=== PATIENT | male | born 1980 | race Caucasian/White ===

== ENCOUNTER 2018-01-13 09:56 | Outpatient (CLI) | payer OTHER ==
[~2018-01-13] VITALS: Ht 188 cm; Wt 109.1 kg
--- NOTE | ~2018-01-13 | HEMODYNAMI ---
PATIENT:RANDALL CAMPOS MEDICAL RECORD: [id number] : 82 LOCATION:[facility] ADMISSION DATE: 01/13/18 Generatedon:01/13/201812:41 Patient name: RANDALL CAMPOS Patient #: [id number] SSN: : 1980 Date of study: 01/13/2018 Page: Of Hemodynamic Procedure Report Patient Data Patient Demographics Procedure consent was obtained First Name: RANDALL Gender: Male Last Name: ANDRES : 1980 Patient #: [id number] Age: 37 year(s) Race: Unknown Additional ID: [id number] Contact details [address]: [address] [place] [address] State: [place] City: [place] Zip code: [address] Past Medical History Allergies: No known allergies Admission Admission Data Admission Date: 01/13/2018 Admission Time: 9:56 Admit Source: Other Lab Results Lab Result Date: 01/13/2018 Lab Result Time: 10:27 Biochemistry Name Units Result Min Max BUN mg/dl 13 --(--*-)-- 7 18 Creatinine mg/dl 0.8 --(-*--)-- 0.6 1.3 CBC Name Units Result Min Max Hematocrit % 42.2 --(*---)-- 42 54 Hemoglobin g/dl 15.9 --(--*-)-- 13.5 17.5 Procedure Procedure Types Cath Procedure Diagnostic Procedure KOLBY Procedure Description Procedure Date Procedure Date: 01/13/2018 Procedure Start Time: 12:27 Procedure End Time: 12:37 Procedure Staff Name Function Dao Watt MD Performing Physician Irineo Alonzo RT Monitor Vida Mcbride RT Crown Ceramist Emily Ohara RN Nurse Ronald Renteria CRNA Additional personnel Helen Garnett Chimney Mechanic Procedure Data Cath Procedure Fluoroscopy Diagnostic fluoroscopy Total fluoroscopy Time: 0 time: 0 min min Diagnostic fluoroscopy Total fluoroscopy dose: 0 dose: 0 mGy mGy Contrast Material Contrast Material Type Amount (ml) Isovue 300 0 Estimated blood loss: 0 ml Procedure Complications No complications Procedure Medications Medication Administration Route Dosage 0.9% NaCl I.V. 100 ml/hr Oxygen etCO2 Nasal cannula 2 l/min Refer to Anesthesia Notes for Sedation Medications unlisted medication 20 ml Hemodynamics Rest HGB: 15.9 (g/dl) Heart Rate: 98 (bpm) Snapshots Pre Cath Intra NCS Post Cath Vital Signs Time Heart Resp SPO2 etCO2 NIBP (mmHg) Rhythm Pain Sedation Rate (ipm) (%) (mmHg) Status Level (bpm) 12:17:37 95 17 100 28.1 138/86(106) NSR 0 (11) 10(A) , No pain 12:21:57 94 24 100 28.8 143/87(113) NSR 0 (11) 10(A) , No pain 12:27:35 96 15 100 28.1 174/162(165) NSR 0 (11) 9(A) , No pain 12:31:36 94 33 100 33.4 147/86(111) NSR 0 (11) 9(A) , No pain 12:35:01 94 23 100 34.9 133/77(96) NSR 0 (11) 9(A) , No pain 12:40:00 106 14 99 35 144/79(92) NSR 0 (11) 9(A) , No pain Medications Time Medication Route Dose Verified Delivered Reason Notes Effective ness by by 12:12:54 0.9% NaCl I.V. 100 Dao Diaz used for ml/hr Alysa Ohara RN procedure 12:13:00 Oxygen etCO2 2 Dao Diaz used for Nasal l/min Alysa Ohara RN procedure cannula 12:13:24 Refer to Dao Diaz Anesthesia Alysa Ohara RN Notes for Sedation Medications 12:24:30 viscous gargle 20 ml Dao Diaz used for lidocaine Alysa Ohara RN procedure Procedure Log Time Note 11:59:33 Informed consent obtained and on chart 11:59:37 Admit Source: Other 12:04:15 Emily Ohara RN sent for patient. Start room use. 12:04:16 Time tracking: Regular hours (M-F 7:00 - 5:00) 12:04:19 Plan of Care:Hemodynamics will remain stable., Cardiac rhythm will remain stable., Comfort level will be maintained., Respiratory function will remain adequate., Patient/ family verbilizes understanding of procedure., Procedure tolerated without complication., Recovers from procedure without complications.. 12:09:01 Lab Result : Creatinine 0.8 mg/dl 12:: Lab Result : BUN 13 mg/dl 12:: Lab Result : Hemoglobin 15.9 g/dl 12:: Lab Result : Hematocrit 42.2 % 12:09:03 Lab results completed and on chart. 12:09:18 Patient arrived from Pre/Post Procedure Room to CCL 1. Patient remains on bed/stretcher for procedure. 12:09:20 Warm blankets applied, and jayjay hugger turned on for patient comfort. 12:09:20 Correct patient and procedure confirmed by team. 12:09:21 ECG and BP/O2 sat monitors applied to patient. 12:09:32 H&P Date Dictated: 01/06/2018 Within 30 days and on chart., H&P Addendum completed by physician on day of procedure. (MUST COMPLETE FOR ALL OUTPATIENTS). 12:09:34 Family in waiting room. 12:09:36 Patient NPO since Midnight. 12:09:42 Patient allergic to No known allergies 12:09:44 Is the patient allergic to Iodine/contrast media? No. 12:12:43 Vital chart was started 12:12:54 0.9% NaCl 100 ml/hr I.V. was administered by Emily Ohara RN; used for procedure; 12:13:00 Oxygen 2 l/min etCO2 Nasal cannula was administered by Emily Ohara RN; used for procedure; 12:13:24 Refer to Anesthesia Notes for Sedation Medications was administered by Emily Ohara RN; ; 12:13:25 Baseline sample Acquired. 12:13:34 Is patient on blood thinner?No 12:13:35 Patient diabetic? No. 12:13:37 Previous problem with sedation/anesthesia? No ? 12:13:39 Snore? Yes 12:13:40 Sleep apnea? No 12:13:41 Deviated septum? No 12:13:42 Opens mouth fully? Yes 12:13:42 Sticks out tongue? Yes 12:13:44 Airway obstruction? No ? 12:13:46 Dentures? No ? 12:14:02 IV patent on arrival in left forearm with 0.9% NaCl at [facility]. 12:14:10 Alarms reviewed by R. NOanh 12:15:20 Ronald Renteria CRNA present and monitoring patient for TIVA. 12:15:24 Helen Mariola Grassland Conservationist present for KOLBY. 12:15:29 Baseline sample Acquired. 12:15:34 Rhythm: sinus tachycardia 12:15:35 Full Disclosure recording started 12:20:14 Physician arrived 12:20:14 --------ALL STOP TIME OUT------ 12:20:14 Final Timeout: patient, procedure, and site verified with staff and physician. All members of the team are in agreement. 12:20:19 Physical assessment completed. ASA score P 2 - A patient with mild systemic disease as per Dao Watt MD. 12:20:22 Sedation plan: TIVA Medication:Propofol 12:24:30 viscous lidocaine 20 ml gargle was administered by Emily Ohara RN; used for procedure; 12:27:47 Procedure started. 12:27:49 KOLBY started. 12:30:46 KOLBY completed. 12:32:13 Procedure ended.(Physican Out) 12:32:29 Fluoroscopy time 00.00 minutes. 12:32:30 Fluoroscopy dose: 0 mGy 12:32:30 Flurop Dose total: 0 12:32:33 Contrast amount:Isovue 300 0ml. 12:32:34 Sharps counted by scrub and verified by R.N. 12:33:07 Post-procedure physical assessment completed. ASA score P 2 - A patient with mild systemic disease as per Dao Watt MD. 12:33:10 Post procedure rhythm: unchanged. 12:33:12 Estimated blood loss: 0 ml 12:33:12 Post procedure instruction explained to patient.Patient verbalizes understanding. 12:33:13 Patient needs reinforcement of post procedure teaching. 12:33:52 Procedure and supply charges have been captured, reviewed, submitted and are correct. 12:33:54 Procedure Complication : No complications 12:37:38 See physician's report for complete and final results. 12:37:40 Report given to Pre/Post Procedure Room. 12:37:42 Patient transfered to Pre/Post Procedure Room with Stretcher. 12:37:43 Procedure ended. 12:37:43 Full Disclosure recording stopped 12:37:47 End room use (Document Last) Signature Audit [place] Stage Time Signature Unsigned Intra-Procedure 01/13/2018 Irineo Alonzo 12:41:39 PM RT(R) Signatures Monitor : Irineo Alonzo RT Signature : Date : Time : [facility] [address] [place] [address]
--- NOTE | ~2018-01-13 | TEE ---
PATIENT:RANDALL CAMPOS MEDICAL RECORD: [id number] LOCATION:[facility] AGE OF PATIENT: 37 ADMISSION DATE: 01/13/18 SEX: M REFERRING PHYSICIAN: INTERPRETING PHYSICIAN: CLAYTON WATT MD TRANSESOPHAGEAL ECHOCARDIOGRAM Date: 01/13/18 KOLBY CHARGE Y INDICATIONS: MITRAL VALVE ABNORMALITY R/O VEGETATION PREMEDICATIONS: PATIENT'S RESPONSE PROCEDURE DOPPLER MEASUREMENTS: LVIT LA PA RA LVOT RVOT Asc. Ao AV Gradient Peak AV Mean AV Area MV Gradient Peak MV Mean MV Area INTERPRETATION: Doppler: 2-D: COLOR FLOW DOPPLER NORMAL SALINE STUDY: MISCELLANOUS: DIAGNOSIS: PLAN: Supervisor Belt And Link Assembly:1 Dr. Watt Channeling Machine Operator: 1 NADJAALEXIS BEARDOE COMMENTS: DATE OF SERVICE: 01/13/2018 PROCEDURE: Transesophageal echo. INDICATION: Evaluate for endocarditis. PROCEDURE IN DETAIL: After informed consent was obtained and after a detailed description of risks, benefits as well as alternative therapies, the patient proceed with transesophageal echo. IV conscious sedation was per anesthesia. TRANSESOPHAGEAL ECHOCARDIOGRAM REPORT [id number] RANDALL CAMPOS Continuous heart rate, O2 saturation, blood pressure monitoring all undertaken, all of which remained stable. FINDINGS: 1. The left ventricular chamber size is within normal limits. Left ventricular systolic function is normal. Overall ejection fraction estimated 60%. 2. Left atrium, right atrium, and right ventricle chamber sizes are within normal limits. 3. Valvular structures have normal structure and motion. No evidence of endocarditis. The mitral valve concern on transthoracic echo was only a prominent chordae. 4. Doppler interrogation reveals no significant valvular insufficiency or stenosis. 5. No evidence of pericardial effusion or left ventricular thrombus. OVERALL IMPRESSION: No evidence of vegetative endocarditis. TRANSINT:[id number] Voice Confirmation ID: [id number] DOCUMENT ID: [id number] at [id number] CC: [id number] DICTATION DATE: 01/13/18 1234 FISH BIN TENDER: 01/14/18 0129 [facility] CLI 01/13/18 [id number] [place] [address]
[2018-01-13] MEDS ORDERED: NEURONTIN600 MG PO (10:21)
[2018-01-13] MEDS ORDERED: TOPROL XL100 MG PO (10:21)
[2018-01-13] MEDS ORDERED: CHANTIX 1 MG TAB1 MG PO (10:21)
[2018-01-13 10:28] VITALS: BP 139/96; Ht 188 cm; Wt 109.1 kg
[2018-01-13 10:34] LABS: EOSINOPHILS 4.3 % (0-7); HEMATOCRIT 42.2 % (42.0-54.0); HEMOGLOBIN 15.9 g/dL (13.5-17.5); IMMATURE GRANULOCYTES 0.4 % (0-5); LYMPHOCYTES 34.8 % (15-50); MCH 33.2 pg (26.0-34.0); MCHC 37.7 g/dL (31.0-37.0); MCV 88.1 fL (80.0-100.0); MEAN PLATELET VOLUME 8.9 fL (7.4-10.4); MONOCYTES 6.3 % (2-11); NEUTROPHILS 53.2 % (40-80); PLATELET COUNT 258 10x3/uL (130-400); RBC 4.79 10x6/uL (4.20-6.10); WBC 9.3 10x3/uL (4.8-10.8)
[2018-01-13 10:43] LABS: INR 0.93 (0.85-1.17); PROTIME 12.1 SECONDS (11.6-15.0)
[2018-01-13 11:12] LABS: UREA NITROGEN 13 mg/dL (7-18)
[2018-01-13 11:13] LABS: CALC OSMOLALITY 288 mosm/kg (275-300); CALCIUM 8.3 mg/dL (8.5-10.1); CARBON DIOXIDE 23.3 mmol/L (21.0-32.0); CHLORIDE - SERUM 101 mmol/L (98-107); CREATININE - SERUM 0.8 mg/dL (0.6-1.3); POTASSIUM - SERUM 4.7 mmol/L (3.5-5.1); SODIUM 139 mmol/L (136-145); eGFR NON AFRICAN AMERICAN > 90 mL/min (90-120)
[2018-01-13 11:14] LABS: GLUCOSE 292 mg/dL (74-106)
== END 2018-01-13 13:50 | disposition home or self-care (01) ==
LOC: D.CATH 09:56 → EDBD 09:56 → D.CATH 12:00
PROVIDERS: Internal Medicine Interventional Cardiology
DX: I38 Endocarditis, valve unspecified (principal)